=== PATIENT | female | born 1980 ===

== ENCOUNTER 2021-01-30 22:38 | Inpatient (IN) | payer SELFPAY ==
[2021-01-30] MEDS ORDERED: OXYTOCIN DRIP 30,000 MILLIUNITS/500 ML BAG IV ONE (23:00)
[2021-01-30] MEDS ORDERED: LACTATED RINGERS 1,000 ML ONE (23:00)
[2021-01-30] MEDS ORDERED: MINERAL OIL 30 ML ORAL LIQD PO PRN (23:17)
[2021-01-30] MEDS ORDERED: LIDOCAINE (2%) 20 MG/1 ML VIAL 20 ML MDV INFILTRATI ONE (23:17)
[2021-01-30] MEDS ORDERED: LOPERAMIDE 2 MG CAP PO PRN (23:17)
[2021-01-30] MEDS ORDERED: ONDANSETRON 4 MG/2 ML INJ IV PRN (23:17)
[2021-01-30] MEDS ORDERED: METHYLERGONOVINE MALEATE 0.2 MG/ML VIAL IM PRN (23:17)
[2021-01-30] MEDS ORDERED: miSOPROStol 200 MCG TAB PR PRN (23:17)
[2021-01-30] MEDS ORDERED: TERBUTALINE 1 MG/1 ML INJ SUB-Q PRN (23:17)
[2021-01-30] MEDS ORDERED: ACETAMINOPHEN 325 MG TAB PO PRN (23:17)
[2021-01-30] MEDS ORDERED: fentaNYL 100 MCG/2 ML INJ IV PRN (23:17)
[2021-01-30] MEDS ORDERED: OXYTOCIN 10 UNIT/1 ML INJ IM PRN (23:17)
[2021-01-30] MEDS ORDERED: CARBOPROST TROMETHAMINE 250 MCG/1 ML INJ IM PRN (23:17)
[2021-01-30] MEDS ORDERED: BUTORPHANOL 2 MG/1 ML INJ IV PRN (23:17)
[2021-01-30] MEDS ORDERED: ePHEDrine SULFATE 50 MG/1 ML INJ IV PRN (23:17)
[2021-01-30] MEDS ORDERED: OXYTOCIN DRIP 30 UNITS/500 ML BAG IV SCH (23:45)
[2021-01-31] MEDS ORDERED: fentaNYL-BUPIV 2 MCG/ML-0.125% 200 MCG/100 ML BAG EPIDURAL ONE (00:02)
[2021-01-31 00:03] LABS: Hematocrit 36.3 % (30.3-42.9); Hemoglobin 12.2 gm/dl (10.1-14.3); Mean Corpuscular HGB Conc 34 % (30-34); Mean Corpuscular Volume 92 fl (79-97); Platelet Count 261 K/mm3 (140-440); Red Blood Count 3.94 M/mm3 (3.65-5.03); Red Cell Distribution Width 14.8 % (13.2-15.2)
[2021-01-31] MEDS ORDERED: diphenhydrAMINE 50 MG/ML VIAL IV PRN (00:16)
[2021-01-31] MEDS ORDERED: NalbUPHINE 10 MG/1 ML INJ IV PRN (00:16)
[2021-01-31] MEDS ORDERED: ONDANSETRON 4 MG/2 ML INJ IV PRN ×2 (00:16→01:30)
[2021-01-31] MEDS ORDERED: NALOXONE 2 MG/2 ML INJ IV PRN (00:16)
[2021-01-31] MEDS ORDERED: ePHEDrine SULFATE 50 MG/1 ML INJ IV PRN (00:16)
[2021-01-31] MEDS ORDERED: LACTATED RINGERS 250 ML IV SOLN IV ONE (00:16)
[2021-01-31] MEDS ORDERED: MAGNESIUM SULFATE 4 GM/100 ML BAG IV ONE (00:28)
--- NOTE | 2021-01-31 00:48 | Anesthesia Consultation ---
Anesthesia Consult and Med Hx Date of service: 01/31/21 - Airway Anesthetic Teeth Evaluation: Good ROM Head & Neck: Adequate Mental/Hyoid Distance: Adequate Mallampati Class: Class III Intubation Access Assessment: Probably Good - Pulmonary Exam CTA: Yes - Cardiac Exam Cardiac Exam: RRR - Pre-Operative Health Status ASA Pre-Surgery Classification: ASA2 Proposed Anesthetic Plan: Epidural - Pulmonary Hx Smoking: No Hx Asthma: No Hx Respiratory Symptoms: No SOB: No COPD: No Hx Pneumonia: No Hx Sleep Apnea: No - Cardiovascular System Hx Hypertension: Yes Hx Coronary Artery Disease: No Hx Heart Attack/AMI: No Hx Angina: No Hx Percutaneous Transluminal Coronary Angioplasty (PTCA): No Hx Cardia Arrhythmia: No Hx Pacemaker: No Hx Internal Defibrillator: No Hx Valvular Heart Disease: No Hx Heart Murmur: No Hx Peripheral Vascular Disease: No - Central Nervous System Hx Neuromuscular Disorder: No Hx Seizures: No CVA: No Hx Back Pain: No Hx Psychiatric Problems: No - Gastrointestinal Hx Ulcer: No Hx Gastroesophageal Reflux Disease: No - Endocrine Hx Renal Disease: No Hx End Stage Renal Disease: No Hx Liver Disease: No Hx Insulin Dependent Diabetes: No Hx Non-Insulin Dependent Diabetes: No Hx Thyroid Disease: No Hx Hypothyroidism: No Hx Hyperthyroidism: No - Hematic Hx Anemia: No Hx Sickle Cell Disease: No - Other Systems Hx Alcohol Use: No Hx Substance Use: No Hx Cancer: No Hx Obesity: No
--- NOTE | 2021-01-31 00:49 | Progress Note ---
Labor Epidural - Labor Epidural Start Time: 00:33 Stop Time: 00:43 Performed by:: GIGI NIELSON Procedure: Patient is requesting epidural for labor and pain. H&P, labs were reviewed. Patient IDed, H&P reviewed, all questions and concerns were answered, and consent was signed. Timeout was performed at bedside. Patient in sitting position. Sterile prep and drape was performed. 3ml of 1% lidocaine skin wheal at L[3]- L [4]. 17-gauge Tuohy epidural needle was advanced to loss of resistance with air technique 6cm. Negative CSF negative blood. Epidural catheter advanced to [11] centimeters. [negative] Aspiration [negative] test dose. Sterile dressing applied. Patient tolerated procedure.
--- NOTE | 2021-01-31 00:49 | History and Physical Report ---
History of Present Illness Date of examination: 01/31/21 Date of admission: 01/30/21 23:17 Chief complaint: contractions History of present illness: 4-year-old G6, P5 at 39 weeks 4 days (MARIO 02/03/21) complicated by advanced maternal age, class II obesity, failed 1 hour GTT with normal 3-hour gtt. presenting with contractions found to be in active labor approximately 6 cm. No leakage of fluid or vaginal bleeding. Active fetus denies PIH symptoms patient reports that she had elevated blood pressures in the beginning was started on blood pressure medication but since the blood pressures were improved she was taken off the medication earlier in . labs reviewed O+ antibody negative Hemoglobin hematocrit 12.1 and 35.9 Pap smear with ASCUS positive HPV negative Rubella immune VDRL nonreactive Urine culture positive for E. 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 Family/Genetic History: none Social history: no significant social history - Obstetrical History Expected Date of Delivery: 02/03/21 Actual Gestation: 39 Week(s) 4 Day(s) : 6 Para: 5 Number of Living Children: 5 Medications and Allergies Allergies Allergy/AdvReac Type Severity Reaction Status Date / Time No Known Allergies Allergy Verified 03/31/13 10:55 Home Medications Medication Instructions Recorded Confirmed Last Taken Type Vit-Fe Fumar-FA [ 1 each PO QDAY #30 tablet 04/01/13 01/30/21 1 Day Ago Rx Vitamin] ~01/29/21 Active Meds: Active Medications Acetaminophen (Acetaminophen 325 Mg Tab) 650 mg PO Q4H PRN PRN Reason: Pain, Mild (1-3) Butorphanol Tartrate (Butorphanol 2 Mg/1 Ml Inj) 1 mg IV Q2H PRN PRN Reason: Pain, Moderate(4-6) LABOR PAIN Carboprost Tromethamine (Carboprost Tromethamine 250 Mcg/1 Ml Inj) 250 mcg IM ONCE PRN PRN Reason: Uterine Bleeding Diphenhydramine HCl (Diphenhydramine 50 Mg/Ml Vial) 12.5 mg IV Q2H PRN PRN Reason: Itching Ephedrine Sulfate (Ephedrine Sulfate 50 Mg/1 Ml Inj) 10 mg IV Q2M PRN PRN Reason: Hypotension Fentanyl (Fentanyl 100 Mcg/2 Ml Inj) 100 mcg IV Q2H PRN PRN Reason: Pain,Severe (7-10) LABOR PAIN Lactated Ringer's (Lactated Ringers) 1,000 mls @ 125 mls/hr IV DIRECT A[place] Oxytocin/Sodium Chloride (Pitocin/Ns 30 Unit/500ml) 30 units in 500 mls @ 40 mls/hr IV TITR AUG[place]O; Protocol Fentanyl/Bupivacaine/Sodium Chlor (Fentanyl-Bupiv 2 Mcg/Ml-0.125%) 200 mcg in 100 mls @ 12 mls/hr EPIDURAL TITR AUGUSTO; Protocol Magnesium Sulfate (Magnesium Sulfate 40gm/1000ml) 40 gm in 1,000 mls @ 50 mls/hr IV DIRECT [place] Loperamide HCl (Loperamide 2 Mg Cap) 2 mg PO ONCE PRN PRN Reason: give with Hemabate Methylergonovine Maleate (Methylergonovine Maleate 0.2 Mg/Ml Vial) 0.2 mg IM ONCE PRN PRN Reason: Uterine Bleeding Mineral Oil (Mineral Oil 30 Ml Oral Liqd) 30 ml PO QHS PRN PRN Reason: Constipation Misoprostol (Misoprostol 200 Mcg Tab) 800 mcg GA ONCE PRN PRN Reason: Uterine Bleeding Nalbuphine HCl (Nalbuphine 10 Mg/1 Ml Inj) 2.5 mg IV Q2H PRN PRN Reason: Itching Naloxone HCl (Naloxone 2 Mg/2 Ml Inj) 0.2 mg IV Q5M PRN PRN Reason: Respiratory sedation Ondansetron HCl (Ondansetron 4 Mg/2 Ml Inj) 4 mg IV Q8H PRN PRN Reason: Nausea And Vomiting Oxytocin (Oxytocin 10 Unit/1 Ml Inj) 10 unit IM ONCE PRN PRN Reason: Uterine Bleeding Terbutaline Sulfate (Terbutaline 1 Mg/1 Ml Inj) 0.25 mg SUB-Q ONCE PRN PRN Reason: Hyperstimulation/Hypertonicity Review of Systems All systems: negative (expect HPI) - Vital Signs Vital signs: Vital Signs Pulse Pulse Ox 77 98 01/30/21 22:56 01/30/21 22:56 Temp Pulse Resp BP Pulse Ox 98.6 F 97 H 18 145/72 98 01/30/21 23:53 01/31/21 00:46 01/30/21 23:53 01/31/21 00:45 01/31/21 00:46 - Physical Exam Abdomen: Positive: normal appearance, soft Uterus: Positive: enlarged - Obstetrical FHR: category 1 Uterine Contraction Monitor Mode: External Cervical Dilatation: 6 Uterine Contraction Pattern: Regular Results Result Diagrams: 01/30/21 23:20 Abnormal lab results 01/30/21 Range/Units 23:20 WBC 16.1 H (4.5-11.0) K/mm3 All other labs normal. Assessment and Plan - Patient Problems (1) Active labor at term Onset Date: 03/31/13 Current Visit: No Status: Acute Plan to address problem: --Epidural PRN --GBS neg --Anticipate vaginal delivery (2) Elevated blood pressure affecting in third trimester, antepartum Current Visit: Yes Status: Acute Plan to address problem: Given severe range blood pressures we will treat for severe preeclampsia by blood pressue --Initiate magnesium per protocol --IV antihypertensive as needed hypertension
[2021-01-31] MEDS: LACTATED RINGERS 1,000 ML IV SCH ×2 (00:52)
[2021-01-31] MEDS ORDERED: fentaNYL-BUPIV 2 MCG/ML-0.125% 200 MCG/100 ML BAG EPIDURAL SCH (01:00)
[2021-01-31] MEDS ORDERED: LANOLIN/ZINC/DIMETHICONE (LANSINOH) 7 GM TP PRN (01:30)
[2021-01-31] MEDS ORDERED: PROMETHAZINE 25 MG TAB PO PRN (01:30)
[2021-01-31] MEDS ORDERED: HYDROCORTISONE 25 MG RECTAL SUPP PR PRN (01:30)
[2021-01-31] MEDS ORDERED: PROMETHAZINE 25 MG RECT SUPP PR PRN (01:30)
[2021-01-31] MEDS ORDERED: ACETAMINOPHEN 325 MG TAB PO PRN (01:30)
[2021-01-31] MEDS ORDERED: oxyCODONE /ACETAMINOPHEN 5-325MG TAB PO PRN (01:30)
[2021-01-31] MEDS ORDERED: BENZOCAINE/MENTHOL 20/0.5% TOP SPRAY 56 GM TP PRN (01:30)
[2021-01-31] MEDS ORDERED: WITCH HAZEL/ GLYCERIN PAD TP PRN (01:30)
[2021-01-31] MEDS ORDERED: diphenhydrAMINE 25 MG CAP PO PRN (01:30)
[2021-01-31] MEDS ORDERED: MAGNESIUM HYDROXIDE (MOM) ORAL LIQD UDC PO PRN (01:30)
--- NOTE | 2021-01-31 01:36 | Procedure Note ---
OB Delivery Note - Delivery Date of Delivery: 01/31/21 Surgeon: KAYLENE HORN JR Estimated blood loss: 100cc - Vaginal Delivery presentation: vertex Delivery position: OA Intrapartum events: precipitous labor- <3hr Delivery induction: none Delivery augmentation: rupture of membranes Delivery monitor: external FHT, external uterine Route of delivery: Delivery placenta: spontaneous Episiotomy: none Delivery laceration: 1st degree (hemostatic, not repaired) Anesthesia: epidural Delivery comments: Status post spontaneous vaginal delivery of male at 0118. Meconium stained fluid. Apgars 8/9. Uncomplicated delivery of placenta. Fundus firm below the umbilicus. First-degree, hemostatic laceration noted that was not repaired. EBL 100 cc. - A at 1 minute: 8 at 5 minutes: 9 Gender: Male
[2021-01-31] MEDS: MAGNESIUM SULFATE 40GM/1000ML 40 GM/1,000 ML BAG IV SCH ×2 (01:40→21:26)
[2021-01-31] MEDS ORDERED: OXYTOCIN DRIP 30 UNITS/500 ML BAG IV SCH (02:00)
[2021-01-31 02:53] LABS: Alanine Aminotransferase 31 units/L (7-56)
[2021-01-31 02:55] LABS: Uric Acid 5.3 mg/dL (3.5-7.6)
[2021-01-31] MEDS: IBUPROFEN 600 MG TAB PO SCH ×4 (07:00→23:47)
--- NOTE | 2021-01-31 15:07 | Post Anesthesia Evaluation ---
- Post Anesthesia Evaluation Patient Participated: Yes Airway Patent: Yes Stable Respiratory Function: Yes Nausea/Vomiting: No Temp > 96.8F: Yes Pain Manageable: Yes Adequeate Hydration: Yes Anesthesia Complications: No Block Receding Appropriately: Yes Patient on Ventilator: No
[2021-01-31 16:26] LABS: Hematocrit 33.2 % (30.3-42.9); Hemoglobin 10.8 gm/dl (10.1-14.3)
--- NOTE | 2021-02-01 09:41 | Progress Note ---
Assessment and Plan A: S/P p: D/C home today if stable per pt's request Subjective - Subjective Date of service: 02/01/21 Principal diagnosis: s/p Patient reports: appetite normal, voiding normally, pain well controlled, ambulating normally [place]: doing well, nursing well Objective - Vital Signs Latest vital signs: Vital Signs Temp Pulse Resp BP Pulse Ox Pulse Ox 02/01/21 08:55 98 02/01/21 08:01 98.0 F 79 16 128/68 95 02/01/21 05:28 98.4 F 77 18 97/59 97 02/01/21 04:00 98 02/01/21 03:08 98.5 F 85 18 120/66 95 02/01/21 01:20 98.3 F 89 20 133/71 02/01/21 01:15 92 H 97 02/01/21 01:11 78 90 02/01/21 01:10 76 95 02/01/21 01:05 79 93 02/01/21 01:00 82 95 02/01/21 00:57 82 110/61 02/01/21 00:55 80 95 02/01/21 00:50 82 95 02/01/21 00:45 88 97 02/01/21 00:40 80 96 02/01/21 00:35 82 96 02/01/21 00:30 92 H 97 02/01/21 00:27 73 110/60 02/01/21 00:25 79 96 02/01/21 00:20 83 96 02/01/21 00:15 75 96 02/01/21 00:10 80 96 02/01/21 00:05 83 96 02/01/21 00:00 98.3 F 81 18 96 01/31/21 23:57 79 114/62 01/31/21 23:55 93 H 98 01/31/21 23:50 82 98 01/31/21 23:47 20 01/31/21 23:45 91 H 96 01/31/21 23:40 92 H 95 01/31/21 23:35 85 96 01/31/21 23:30 95 H 96 01/31/21 23:27 90 116/71 01/31/21 23:25 88 96 01/31/21 23:20 92 H 97 01/31/21 23:15 89 94 01/31/21 23:10 88 96 01/31/21 23:05 89 96 01/31/21 23:00 94 H 95 01/31/21 22:57 80 118/64 01/31/21 22:55 81 96 01/31/21 22:50 84 93 01/31/21 22:45 83 94 01/31/21 22:40 94 H 96 01/31/21 22:35 90 97 01/31/21 22:30 90 96 01/31/21 22:27 90 135/73 01/31/21 22:25 89 96 01/31/21 22:20 93 H 97 01/31/21 22:15 93 H 97 01/31/21 22:10 94 H 95 01/31/21 22:05 90 98 01/31/21 22:00 95 H 93 01/31/21 21:57 89 141/71 01/31/21 21:55 94 H 96 01/31/21 21:50 88 95 01/31/21 21:45 88 96 01/31/21 21:40 87 95 01/31/21 21:35 88 95 01/31/21 21:30 87 133/69 95 01/31/21 21:27 87 133/69 01/31/21 21:25 89 95 01/31/21 21:20 88 95 01/31/21 21:15 89 97 01/31/21 21:10 95 H 97 01/31/21 21:05 93 H 97 01/31/21 21:00 101 H 97 01/31/21 20:57 91 H 132/77 01/31/21 20:55 92 H 97 01/31/21 20:50 95 H 95 01/31/21 20:45 97 H 97 01/31/21 20:40 98 H 97 01/31/21 20:35 103 H 96 01/31/21 20:30 99 H 98 01/31/21 20:27 96 H 144/78 01/31/21 20:25 96 H 97 01/31/21 20:20 95 H 95 01/31/21 20:15 96 H 97 01/31/21 20:10 93 H 96 01/31/21 20:05 97.9 F 95 H 18 97 97 01/31/21 20:00 94 H 95 01/31/21 19:57 96 H 135/72 01/31/21 19:55 91 H 96 01/31/21 19:50 97 H 94 01/31/21 19:45 96 H 97 01/31/21 19:40 98 H 97 01/31/21 19:35 94 H 95 01/31/21 19:30 99 H 96 01/31/21 19:27 90 143/73 01/31/21 19:25 95 H 95 01/31/21 19:20 93 H 96 01/31/21 19:15 97 H 96 01/31/21 19:10 94 H 94 01/31/21 19:05 101 H 96 01/31/21 19:00 97 H 95 01/31/21 18:57 88 136/74 01/31/21 18:55 99 H 94 01/31/21 18:50 102 H 97 01/31/21 18:45 100 H 97 01/31/21 18:40 98 H 95 01/31/21 18:35 100 H 96 01/31/21 18:30 103 H 96 01/31/21 18:25 98 H 147/74 96 01/31/21 18:20 105 H 96 01/31/21 18:15 93 H 96 01/31/21 18:10 98 H 96 01/31/21 18:05 93 H 96 01/31/21 18:00 100 H 100 01/31/21 17:55 100 H 98 01/31/21 17:50 93 H 96 01/31/21 17:45 97 H 97 01/31/21 17:40 102 H 97 01/31/21 17:37 96 H 170/82 01/31/21 17:35 104 H 98 01/31/21 17:30 92 H 96 01/31/21 17:27 90 164/84 01/31/21 17:25 106 H 97 01/31/21 17:20 106 H 97 01/31/21 17:15 110 H 97 01/31/21 17:10 109 H 96 01/31/21 17:05 98 H 96 01/31/21 17:00 88 93 01/31/21 16:57 86 150/78 01/31/21 16:55 97 H 95 01/31/21 16:50 85 96 01/31/21 16:45 85 95 01/31/21 16:40 95 H 94 01/31/21 16:35 106 H 97 01/31/21 16:30 102 H 94 01/31/21 16:27 83 141/64 01/31/21 16:25 82 95 01/31/21 16:20 88 95 01/31/21 16:15 98 H 94 01/31/21 16:10 88 96 01/31/21 16:05 90 95 01/31/21 16:00 85 100 01/31/21 15:57 86 131/73 01/31/21 15:55 91 H 95 01/31/21 15:50 100 H 97 01/31/21 15:45 97 H 98 01/31/21 15:40 93 H 97 01/31/21 15:35 96 H 96 01/31/21 15:30 100 H 97 01/31/21 15:27 96 H 140/79 01/31/21 15:25 94 H 97 01/31/21 15:21 99 H 97 01/31/21 15:15 93 H 97 01/31/21 15:10 95 H 96 01/31/21 15:06 92 H 97 01/31/21 15:01 94 H 97 01/31/21 14:57 92 H 134/73 01/31/21 14:56 88 96 01/31/21 14:51 96 H 95 01/31/21 14:45 93 H 96 01/31/21 14:41 89 96 01/31/21 14:36 90 98 01/31/21 14:31 94 H 97 01/31/21 14:27 86 137/75 01/31/21 14:26 86 97 01/31/21 14:21 100 H 95 01/31/21 14:16 88 97 01/31/21 14:11 102 H 98 01/31/21 14:06 82 94 01/31/21 14:01 86 96 01/31/21 14:00 100 01/31/21 13:57 83 133/64 01/31/21 13:56 84 96 01/31/21 13:51 85 97 01/31/21 13:46 86 98 01/31/21 13:41 85 96 01/31/21 13:36 92 H 96 01/31/21 13:31 89 96 01/31/21 13:27 88 136/68 01/31/21 13:26 88 97 01/31/21 13:21 97 H 97 01/31/21 13:16 89 95 01/31/21 13:11 95 H 97 01/31/21 13:06 94 H 96 01/31/21 13:01 98 H 97 01/31/21 13:00 98.4 F 01/31/21 12:57 90 136/67 01/31/21 12:56 93 H 95 01/31/21 12:51 103 H 97 01/31/21 12:46 89 96 01/31/21 12:41 89 95 01/31/21 12:36 96 H 96 01/31/21 12:31 103 H 98 01/31/21 12:27 93 H 131/74 01/31/21 12:25 99 H 98 01/31/21 12:20 100 H 96 01/31/21 12:15 103 H 96 01/31/21 12:11 102 H 97 01/31/21 12:05 109 H 97 01/31/21 12:01 99 H 97 01/31/21 12:00 100 01/31/21 11:57 97 H 129/65 01/31/21 11:55 102 H 97 01/31/21 11:51 102 H 98 01/31/21 11:46 98 H 96 01/31/21 11:41 102 H 97 01/31/21 11:36 99 H 95 01/31/21 11:31 99 H 97 01/31/21 11:27 93 H 134/74 01/31/21 11:26 102 H 97 01/31/21 11:21 83 97 01/31/21 11:16 84 96 01/31/21 11:11 92 H 96 01/31/21 11:06 104 H 96 01/31/21 11:01 101 H 97 01/31/21 10:58 94 H 118/84 01/31/21 10:56 102 H 97 01/31/21 10:51 92 H 95 01/31/21 10:46 100 H 94 01/31/21 10:41 103 H 97 01/31/21 10:36 104 H 97 01/31/21 10:31 102 H 95 01/31/21 10:27 96 H 123/67 01/31/21 10:26 106 H 97 01/31/21 10:21 105 H 99 01/31/21 10:16 109 H 97 01/31/21 10:11 104 H 97 01/31/21 10:06 110 H 97 01/31/21 10:01 94 H 97 01/31/21 10:00 100 01/31/21 09:57 99 H 124/65 01/31/21 09:56 106 H 97 01/31/21 09:51 103 H 96 01/31/21 09:46 107 H 97 01/31/21 09:41 109 H 97 Intake and Output 01/31/21 02/01/21 02/01/21 22:59 06:59 14:59 Intake Total 1108.333 200 Output Total 1550 900 Balance -441.667 -700 Intake: IV 988.333 MAGNESIUM SULFATE 40GM/ 988.333 1000ML 40 gm In 1,000 ml @ 2 GM/HR 50 mls/hr IV DIRECT [place] Rx#:[id number] Intake, Free Water 120 200 Output: Urine 1550 900 Indwelling Catheter 1550 900 Other: Total, Output Amount 400 900 - Exam Breasts: Present: normal Abdomen: Present: normal appearance, soft, normal bowel sounds Vulva: both: normal Uterus: Present: normal, firm, fundal height below umbilicus Extremities: Present: normal Incision: Present: normal, intact - Labs Labs: Abnormal lab results 01/31/21 01/31/21 Range/Units 16:11 23:53 Magnesium 4.30 H 5.10 H (1.7-2.3) mg/dL
--- NOTE | 2021-02-01 09:50 | Discharge Summary ---
Providers - Providers Date of Admission: 01/30/21 23:17 Date of discharge: 02/01/21 Attending physician: KAYLENE HORN JR, MD Primary care physician: KAYLENE HORN JR, MD Hospitalization Reason for admission: active labor, IUP at term Delivery: Episiotomy: none Laceration: 1st degree Incision: normal, intact Other procedures: none complications: none Discharge diagnosis: IUP at term delivered [place] baby: male Hospital course: Pt was admitted in active labor and had a w/o pp complications.See H&P, delivery summary, and pp notes. Condition at discharge: Stable Disposition: 01 HOME / SELF CARE / HOMELESS Plan - Discharge Medications Prescriptions: Ibuprofen [Motrin 600 MG tab] 600 mg PO Q6H PRN #30 tablet PRN Reason: Menstrual Cramps - Provider Discharge Summary Activity: routine, no sex for 6 weeks, no heavy lifting 4 weeks, no strenuous exercise Diet: routine Instructions: routine Additional instructions: [] Smoking cessation referral if applicable(refer to patient education folder for contact #) [] Refer to [facility] Booklet Call your doctor immediately for: * Fever > 100.5 * Heavy vaginal bleeding ( >1 pad per hour) * Severe persistent headache * Shortness of breath * Reddened, hot, painful area to leg or breast * Drainage or odor from incision. * Keep incision clean and dry at all times and follow doctor's instructions regarding bathing/showering - Follow up plan Follow up: KAYLENE HORN JR, MD [Primary Care Provider] - 6 Weeks
[2021-02-01] MEDS: IBUPROFEN 600 MG TAB PO SCH (12:59)
[2021-02-01 16:21] VITALS: BP 132/63
== END 2021-02-01 17:40 | disposition home or self-care (01) | DRG 807 ==
LOC: TRG 22:38 → APU 22:40 → TRG 23:17 → LD 23:17 → OB 02-01 03:05
PROVIDERS: ADMIT Obstetrics & Gynecology; ATTEND Obstetrics & Gynecology
PROC: 10E0XZZ Delivery of Products of Conception, External Approach (ICD-10-PCS; principal; 2021-01-31)
PROC: 0W8NXZZ Division of Female Perineum, External Approach (ICD-10-PCS; 2021-01-31)
PROC: 0HQ9XZZ Repair Perineum Skin, External Approach (ICD-10-PCS; 2021-01-31)
PROC: 3E0R3BZ Introduction of Anesthetic Agent into Spinal Canal, Percutaneous Approach (ICD-10-PCS; 2021-01-31)
PROC: 00HU33Z Insertion of Infusion Device into Spinal Canal, Percutaneous Approach (ICD-10-PCS; 2021-01-31)
DX: O13.3 Gestational [pregnancy-induced] hypertension without significant proteinuria, third trimester (principal); Z37.0 Single live birth; Z3A.39 39 weeks gestation of pregnancy; Z20.822 Contact with and (suspected) exposure to COVID-19; O70.0 First degree perineal laceration during delivery; O14.94 Unspecified pre-eclampsia, complicating childbirth; O77.0 Labor and delivery complicated by meconium in amniotic fluid
CPT/HCPCS: 36415; 59025; 82565; 83615; 83735; 84450; 84460; 84550; 85014; 85018; 85027; 86592; 86850; 86900; 86901; G0378; J2590; J3475; J7120; U0003